=== PATIENT | female | born 1970 | race Caucasian/White ===

== ENCOUNTER 2021-05-17 09:10 | Outpatient (CLI) | payer OTHER | END 2021-05-17 09:11 | disposition home or self-care (01) | LOC: CSHLAB 09:10 | PROVIDERS: ATTEND Obstetrics & Gynecology | DX: Z01.818 Encounter for other preprocedural examination (principal); D25.9 Leiomyoma of uterus, unspecified; R10.2 Pelvic and perineal pain; N92.0 Excessive and frequent menstruation with regular cycle | CPT/HCPCS: 84703; 85027; 86850; 86900; 86901; 93005; 93010; U0003; U0005 ==

== ENCOUNTER 2021-05-22 06:17 | Day surgery (SDC) | payer OTHER ==
[2021-05-17 10:20] LABS: Hemoglobin 11.4 g/dL (12.0-15.5); Mean Corpuscular HGB CONC 30.1 g/dL (32.0-36.0); Mean Corpuscular Hemoglobin 21.8 pg (27.0-33.0); Mean Corpuscular Volume 72.6 fl (81.6-98.3); Mean Platelet Volume 9.2 fl (7.4-10.4); Platelet Count 367 10x3/uL (150-450); Red Blood Cell (RBC) Count 5.22 10x6/uL (3.90-5.03); White Blood Cell (WBC) Count 5.8 10x3/uL (3.5-10.5)
[2021-05-17 10:27] LABS: BHCG - Serum Negative (NEGATIVE); Pregs Control Background? CLEAR/WHITE (CLR/WHITE); Pregs Control Bar Appear? YES (CONTROL BAR)
[2021-05-17 22:06] LABS: SARS-CoV-2 PCR by NAA Not Detected (NotDetected)
[2021-05-18 12:51] VITALS: BMI 24.5
[~2021-05-22 06:17] MED LIST: CeleCOXIB 100 MG CAP ONE; Famotidine/PF 20 mg/2ml Vial ONE; Gabapentin 300 MG CAP ONE; Lidocaine 1% MPF 2 ML VIAL ONE
[2021-05-22] MEDS ORDERED: Ondansetron PF 4 MG/2 ML Vial ONE (06:48)
[2021-05-22] MEDS ORDERED: PROPOFOL 0 ML ONE (06:48)
[2021-05-22] MEDS ORDERED: Ketorolac Tromethamine 30 MG/ML VIAL ONE (06:49)
[2021-05-22] MEDS ORDERED: Rocuronium Bromide 10 MG/ML (10ML VIAL) ONE (06:49)
[2021-05-22] MEDS ORDERED: Lidocaine 2% PF 5 ML VIAL ONE (06:49)
[2021-05-22] MEDS ORDERED: Bupivacaine PF 0.5% 30 ML VIAL ONE (06:51)
[2021-05-22] MEDS ORDERED: EPINEPHrine 1 MG/ML AMP ONE (06:51)
[2021-05-22] MEDS ORDERED: Midazolam HCl 2 mg/2 ml Vial ONE (07:14)
[2021-05-22] MEDS ORDERED: Fentanyl 100 MCG/2 ML VIAL ONE ×2 (07:18→11:47)
[2021-05-22] MEDS ORDERED: Fentanyl 250 MCG/5 ML VIAL ONE (07:59)
[2021-05-22] MEDS ORDERED: hydrALAZINE 20 MG/ML VIAL ONE (08:14)
[2021-05-22] MEDS ORDERED: PROPOFOL 20 ML ONE (10:59)
[2021-05-22] MEDS ORDERED: Glycopyrrolate 0.2 MG/ML 5 ML SYRINGE ONE (11:05)
== END 2021-05-22 15:17 | disposition home or self-care (01) ==
LOC: CSHSDC 06:17
PROVIDERS: ATTEND Obstetrics & Gynecology
PROC: 0UT94ZZ Resection of Uterus, Percutaneous Endoscopic Approach (ICD-10-PCS; principal; 2021-05-22)
PROC: 0UT24ZZ Resection of Bilateral Ovaries, Percutaneous Endoscopic Approach (ICD-10-PCS; principal; 2021-05-22)
PROC: 0UT74ZZ Resection of Bilateral Fallopian Tubes, Percutaneous Endoscopic Approach (ICD-10-PCS; principal; 2021-05-22)
DX: D25.1 Intramural leiomyoma of uterus (principal); D25.2 Subserosal leiomyoma of uterus; N80.0 Endometriosis of uterus; N73.6 Female pelvic peritoneal adhesions (postinfective); I10 Essential (primary) hypertension; Z91.018 Allergy to other foods; Z91.041 Radiographic dye allergy status; Z20.822 Contact with and (suspected) exposure to COVID-19
CPT/HCPCS: 84703; 85027; 86850; 86900; 86901; 88307; J0171; J0360; J0690; J1885; J2001; J2250; J2405; J2704; J3010; S0020; S0028; U0003; U0005